=== PATIENT | male | born 1985 | race Caucasian/White ===

== ENCOUNTER 2024-04-26 18:05 | Emergency (ER) | payer OTHER ==
[~2024-04-26] VITALS: Ht 182.9 cm; Wt 125.6 kg
[~2024-04-26 18:05] MED LIST: CHLORPROMAZINE100 MG PO; CITALOPRAM HBR40 MG PO; GEODON20 MG PO
[2024-04-26] MEDS ORDERED: NALOXONE 4 MG NASAL SPRAY #2 HOME.PACK NAS ONE (19:45)
[2024-04-26] MEDS ORDERED: Buprenorphine/Naloxone 8/2mg 1 EACH HOME.PACK SL ONE (19:45)
[2024-04-26 20:28] VITALS: BP 147/83
== END 2024-04-26 20:29 | disposition home or self-care (01) ==
LOC: ED 18:05
DX: F32.A Depression, unspecified (principal); F17.200 Nicotine dependence, unspecified, uncomplicated; Z76.0 Encounter for issue of repeat prescription; Z79.899 Other long term (current) drug therapy; Z59.00 Homelessness unspecified; Z88.0 Allergy status to penicillin
CPT/HCPCS: 99281; A9270; J3490